=== PATIENT | male | born 1950 | race American Indian/Alaskan Native ===

== ENCOUNTER 2018-11-29 09:03 | Outpatient (CLI) | payer MEDICARE ==
--- NOTE | 2018-11-29 14:06 | Cat Scan Report ---
CT abdomen and pelvis without and with IV contrast: Abdominal pain. Initial images were obtained from the lower chest to the ischium prior to administration of IV contrast. Oral contrast was administered. This was followed by comparable images after intravenous contrast was injected. Coronal and sagittal reformatted images included. The visualized lung bases are clear. Heavy calcifications noted in the left coronary vessels. The abdominal organs appear unremarkable including images of the pancreas. The adrenal glands were normal. A couple of tiny cysts identified in the right kidney as well as a predominantly exophytic 2 cm cyst in the inferior pole and a nonobstructing 4 mm calculus in the right upper pole. There is a 17 mm intraparenchymal cyst in the inferior left kidney. The partially opacified small bowel and large bowel appears generally unremarkable. The appendix is present is not identified. There is no evidence of a mass or inflammatory finding. No free fluid. The abdominal aorta is normal in size and contour. There is relatively heavy mural calcification in the distal aorta. There is an unremarkable bifurcation into normal sized iliofemoral arteries. The prostate gland measures approximately 5 cm in each of the 3 dimensions as well as indenting the base of the bladder. There is no obvious intraluminal abnormality in the bladder and the ramírez are not thickened. No obvious bone lesions. There is significant narrowing in the superior hip joints bilaterally. Impressions: 1. Bilateral renal cysts. 2. Prostatic enlargement. 3. Degenerative hip changes. 4. Coronary vascular calcification.
== END 2018-11-29 09:04 | disposition home or self-care (01) ==
LOC: EDBD 09:03 → CT 09:03 → EDSEX 09:03 → CT 09:04
PROVIDERS: ATTEND Internal Medicine
DX: N28.1 Cyst of kidney, acquired (principal); N40.0 Benign prostatic hyperplasia without lower urinary tract symptoms; M16.0 Bilateral primary osteoarthritis of hip; I25.10 Atherosclerotic heart disease of native coronary artery without angina pectoris
CPT/HCPCS: 74178; Q9967

== ENCOUNTER 2018-12-08 08:41 | Outpatient (CLI) | payer MEDICARE ==
--- NOTE | 2018-12-08 10:16 | Ultrasound Report ---
Renal ultrasound: History of cysts and stones. Imaging of the right kidney demonstrates a length of 9.9 cm and the left renal length is 9.1 cm. The parenchyma of both kidneys is adequate in thickness. Images of the right kidney demonstrate a normally echogenic pattern. In the inferior pole there is a primarily exophytic circumscribed anechoic mass measuring 2.2 cm consistent with simple cysts. Imaging of the left kidney demonstrates a similar echo pattern with a circumscribed anechoic mass noted inferiorly measuring 14 mm in maximum dimension. In addition there is a focal echogenicity measuring approximately 3 mm in the central kidney. No evidence of obstructive uropathy. Imaging of the urinary bladder is unremarkable. The prostate gland measures approximately 4.6 x 4.6 x 5.1 cm and contains some central calcifications. There is mild indentation on the bladder base. Impressions: 1. Bilateral simple appearing cysts. 2. Nonobstructing left renal calculus. 3. Mild prostatic enlargement.
== END 2018-12-08 08:42 | disposition home or self-care (01) ==
LOC: SPVWC 08:41
PROVIDERS: ATTEND Internal Medicine
DX: N40.0 Benign prostatic hyperplasia without lower urinary tract symptoms (principal); N28.1 Cyst of kidney, acquired; N20.0 Calculus of kidney
CPT/HCPCS: 76770

== ENCOUNTER 2019-01-16 08:26 | Outpatient (CLI) | payer MEDICARE ==
--- NOTE | 2019-01-16 10:35 | Ultrasound Report ---
ULTRASOUND TESTICULAR DOPPLER COMPLETE HISTORY: Right testicular pain for 3 weeks, no history of trauma. TECHNIQUE: Grayscale ultrasound with color and spectral Doppler imaging performed. COMPARISON: None FINDINGS: The right testicle measures 2.9 x 1.8 x 2.6 cm. The left testicle measures 3.3 x 2.0 x 3.1 cm. Both testicles are normal size, contour and echotexture. No mass or cyst. The left epididymis is normal. The body and tail of the right epididymis appears thickened and hetero geneous. Spectral Doppler waveforms demonstrate arterial flow to both testicles. Color Doppler images suggest mild hyperemia to the right epididymis. No significant hydrocele or varicocele. IMPRESSION: Findings suggestive of mild right epididymitis. Signer Name: Tony Rebolledo Jr, MD Signed: 01/16/2019 10:31 AM Workstation Name: [id number]
== END 2019-01-16 08:27 | disposition home or self-care (01) ==
LOC: US 08:26
PROVIDERS: ATTEND Urology
DX: N50.82 Scrotal pain (principal)
CPT/HCPCS: 93975